=== PATIENT | female | born 1965 | race Caucasian/White ===

== ENCOUNTER → 2020-07-31 15:38 | Outpatient (CLI) | payer OTHER, SELFPAY ==
--- NOTE | ~2020-07-31 | CT_ITS ---
EXAMINATION:CT diagnostic chest wo con DATE: 07/31/2020 15:54 INDICATION: Solitary pulmonary nodule. TECHNIQUE: Computed tomography (CT) of the chest was performed without intravenous contrast. Automate d exposure control and iterative reconstruction technique were employed. The dose-length product (DLP ) was 352.98 mGy-cm. COMPARISON: Chest CT 12/30/2018 FINDINGS: There are bilateral posterior medial diaphragmatic hernias containing fat. A calcified righ t lung nodule and calcified right hilar lymph nodes are consistent with old granulomatous disease. Th ere is a 4 mm nodules at minor fissure without change. No pleural effusion. There is a 9 mm nodule in right thyroid lobe, likely not clinically significant. There is chronic mild mediastinal lymphadenop athy, likely reactive. The heart size is normal. No pericardial effusion. There is mild thoracic spon dylosis. IMPRESSION: 1. Chronic small pulmonary nodule, likely benign. Reviewed, dictated and finalized at location A.
== END ==
PROVIDERS: PCP Emergency Medicine; Visit Provider Emergency Medicine
DX: R91.1 Solitary pulmonary nodule (principal); M47.814 Spondylosis without myelopathy or radiculopathy, thoracic region
CPT/HCPCS: 71250

== ENCOUNTER → 2020-08-10 15:40 | Outpatient (CLI) | payer OTHER, SELFPAY ==
--- NOTE | ~2020-08-10 | US_ITS ---
EXAMINATION: US thyroid EXAM DATE: 08/10/2020 16:04 INDICATION: E04.1 - Nontoxic single thyroid nodule. TECHNIQUE: Multiple grayscale and Doppler images of the thyroid were obtained (by a technologist who performed the scan) and subsequently reviewed. Individual nodules and recommendations may be reporte d in accordance with TI-RADS system as designated by the 2017 ACR White Paper TI-RADS committee. Comp pillo is made to prior examination from 07/02/2015. FINDINGS: Moderately diffusely heterogeneous thyroid parenchyma, with the right there are lobe measuring 5.1 x 1.4 x 1.7 cm and the left lobe measuring 4.5 x 1.0 x 1.4 cm. Again there are scattered nodules, largest region measured in the right thyroid lobe measuring 1.0 x 0.6 x 0.9 cm, suspected most likely heterogeneous region of patient's thyroid-this region was not spe cifically measured on prior study. The next largest definite nodule has peripheral calcification, is smaller at 8 mm diameter, also category TR 4, unchanged compared to 2017 consistent with benign histo logy. Other scattered subcentimeter nodules. IMPRESSION: Heterogeneous thyroid with small nodules probably benign. Consider clinical follow-up and if additional palpable abnormality develops a repeat ultrasound. Reviewed, dictated and finalized at location A. IMPRESSION: Heterogeneous thyroid with small nodules probably benign. Consider clinical follow-up and if additional palpable abnormality develops a repeat ult rasound.
== END ==
PROVIDERS: PCP Emergency Medicine; Visit Provider Emergency Medicine
DX: E04.1 Nontoxic single thyroid nodule (principal)
CPT/HCPCS: 76536

== ENCOUNTER 2020-10-29 15:19 | Emergency (ER) | payer OTHER, SELFPAY ==
[2020-10-29 15:32] VITALS: BP 140/80; PULSE 94; RESP 18; TEMP 37.1; O2SAT 98
--- NOTE | 2020-10-29 16:21 | ED.EYEPROB ---
HPI - Eye Problem General Chief complaint: Eye Problems Stated complaint: swelling/itchy/burning to lt eye Source: patient Mode of arrival: ambulatory Limitations: no limitations History of Present Illness HPI Narrative: Patient is a 55-year-old female who presents with rash to left forehead and eyebrow x2 days. She reports itching and burning. She denies visual changes. She reports mild swelling to upper eyelid. She denies all other complaints at this time. Patient has no significant medical history. MD chief complaint: other Related Data Home Medications Medication Instructions Recorded Confirmed cetirizine 10 mg tablet 10 mg PO DAILY 07/19/19 07/19/20 fluticasone propionate 50 See Rx Instructions .ROUTE .COMPLEX 07/19/19 07/19/20 mcg/actuation nasal spray,suspension zinc acetate 25 mg (zinc) capsule 25 mg PO DAILY 09/07/20 Allergies Allergy/AdvReac Type Severity Reaction Status Date / Time hydrocodone Allergy Mild HIVES Verified 06/13/17 07:04 meperidine Allergy Mild NAUSEA AND Verified 06/13/17 07:04 VOMITING morphine Allergy Mild HIVES Verified 06/13/17 07:04 PROPOXYPHENE NAPSYLATE AdvReac Mild N&V Uncoded 06/13/17 07:04 Review of Systems Review of Systems: CONSTITUTIONAL: Denies fever, chills, or sweats. EYES: Denies visual changes, redness, or discharge. ENT: Denies rhinorrhea, congestion, sore throat, or otalgia. CARDIOVASCULAR: Denies chest pain, palpitations, or edema. RESPIRATORY: Denies cough or dyspnea. GASTROINTESTINAL: Denies abdominal pain, nausea, vomiting, or diarrhea. GENITOURINARY: Denies dysuria or hematuria. SKIN: Rash to left forehead and left eyebrow MUSCULOSKELETAL: Denies back pain, joint pain, or myalgia. NEUROLOGIC: Denies headache, numbness, dizziness, or weakness. PSYCHIATRIC: Denies anxiety or depression. [facility] Past Medical History Medical History Asthma H/O diverticulitis of colon Other screening mammogram Family History Family History Mother Family history of thyroid disease Hypertension Family history of malignant neoplasm of stomach Asthma Father Cerebrovascular accident Diabetes mellitus Hypertension Family history of diabetes mellitus in first degree relative Asthma Sibling Family history of thyroid disease Hypertension Asthma Unknown Asthma Other Alcoholism Cancer Depression Family history of allergic disorder Family history of malignant neoplasm Heart disease Thyroid disease Social History Social History Social History: Patient does not drink caffeine, Smoking status: Former smoker Smoking end date: 02/10/90 Alcohol intake: current Comments At the time of signature, I have reviewed and agree with nursing past medical, surgical, social, and family history unless otherwise noted. Please see nursing chart for further information. There is no relevant family history pertinent to the presenting complaint. Exam Narrative: GENERAL: Well-appearing, well-nourished, and in no acute distress. HEAD: Normocephalic, atraumatic. EYES: EOMI. No redness or drainage. Conjunctiva are normal. ENT: Mucous membranes pink and moist. CHEST: No respiratory distress. Clear to auscultation. HEART: Regular rate and rhythm. No murmur appreciated. Normal peripheral pulses. EXTREMITIES: Normal range of motion. SKIN: Vescicular rash to left forehead and eyebrow, mild periorbital edema, no discharge noted. NEURO: No focal deficits. Alert and oriented x3. Gait steady. PSYCH: Normal affect. No signs of depression or anxiety. Course Vital Signs Vital signs: Vital Signs Temperature 37.1 C 10/29/20 15:32 Pulse Rate 94 10/29/20 15:32 Respiratory Rate 18 10/29/20 15:32 Blood Pressure 140/80 10/29/20 15:32 Pulse Oximetry 98 10/29/20 15:32
== END 2020-10-29 16:42 | disposition home or self-care (01) ==
PROVIDERS: Emergency Provider Nurse Practitioner; PCP Emergency Medicine
DX: B02.9 Zoster without complications (principal); J45.909 Unspecified asthma, uncomplicated; Z87.891 Personal history of nicotine dependence
CPT/HCPCS: 99213; G0463

== ENCOUNTER → 2021-01-31 15:01 | Outpatient (CLI) | payer OTHER, SELFPAY ==
--- NOTE | ~2021-01-31 | MM_ITS ---
EXAMINATION: MM screening [facility] BI w nevaeh HISTORY: Screening mammogram TECHNIQUE: Craniocaudal and mediolateral oblique 3-D tomosynthesis images were obtained and synthetic 2-D images were generated. CAD analysis was submitted and interpreted. COMPARISON: 12/19/2008, 11/03/2007 BREAST PARENCHYMAL COMPOSITION: The breasts are almost entirely fatty. FINDINGS: Subtle architectural distortion in the upper outer quadrant of the left breast is seen at t he site of prior excisional biopsy. There is no evidence of suspicious mass, calcification, or dylan ectural distortion to suggest malignancy in either breast. There has been no suspicious interval reyes ge. IMPRESSION: 1. No mammographic evidence of malignancy. 2. Recommend routine screening mammography in one year. BI-RADS Category 2: Benign finding(s). Reviewed, dictated and finalized at location A. 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
== END ==
PROVIDERS: PCP Emergency Medicine; Visit Provider Obstetrics & Gynecology
DX: Z12.31 Encounter for screening mammogram for malignant neoplasm of breast (principal)
CPT/HCPCS: 77063; 77067

== ENCOUNTER 2021-05-19 15:47 | Emergency (ER) | payer OTHER, SELFPAY ==
[2021-05-19 16:03] VITALS: BP 123/77; PULSE 76; RESP 18; TEMP 36.6; O2SAT 97
--- NOTE | 2021-05-19 16:16 | ED.EAR ---
HPI - Ear Problem General Chief complaint: Ear Stated complaint: Lt Ear Pain Time Seen by Provider: 05/19/21 16:10 Source: patient Mode of arrival: ambulatory Limitations: no limitations History of Present Illness HPI Narrative: Naila Yadav is a 56 yo female with a PMH of hyperglycemia(resolved), hypertension(resolved), sinus congestion, hypothyroid, [facility] of left ear pain. she states her jaw also hurts on the L and ears bilaterally have been feeling full.Reports 5/10 pain on L Related Data Home Medications Medication Instructions Recorded Confirmed fluticasone propionate 50 See Rx Instructions .ROUTE .COMPLEX 07/19/19 05/19/21 mcg/actuation nasal spray,suspension montelukast [Singulair] 10 mg PO HS 05/19/21 05/19/21 Allergies Allergy/AdvReac Type Severity Reaction Status Date / Time hydrocodone Allergy Mild HIVES Verified 05/19/21 16:07 meperidine Allergy Mild NAUSEA AND Verified 05/19/21 16:07 VOMITING morphine Allergy Mild HIVES Verified 05/19/21 16:07 PROPOXYPHENE NAPSYLATE AdvReac Mild N&V Uncoded 05/19/21 16:07 Review of Systems Review of Systems: CONSTITUTIONAL: Denies fever, chills, sweats. EYES: Denies visual changes, redness, discharge. ENT: Denies rhinorrhea, congestion, sore throat, left otalgia. CARDIOVASCULAR: Denies chest pain, palpitations, edema. RESPIRATORY: Denies dyspnea, wheezing, cough GASTROINTESTINAL: Denies abdominal pain, nausea, vomiting, diarrhea. GENITOURINARY: Denies dysuria, hematuria, abnormal discharge SKIN: Denies rash or itching. NEUROLOGIC: Denies numbness, or focal weakness. PSYCHIATRIC: Denies anxiety or depression. [facility] Past Medical History Medical History Anxiety Asthma H/O diverticulitis of colon H/O diverticulitis of colon Incisional hernia, without obstruction or gangrene Multinodular goiter Other screening mammogram Thyroid Nodule Uncomplicated asthma Surgical History Surgical History History of hernia repair Family History Family History Mother Family history of thyroid disease Hypertension Family history of malignant neoplasm of stomach Asthma Father Cerebrovascular accident Diabetes mellitus Hypertension Family history of diabetes mellitus in first degree relative Asthma Sibling Family history of thyroid disease Hypertension Asthma Unknown Asthma Other Alcoholism Cancer Depression Family history of allergic disorder Family history of malignant neoplasm Heart disease Thyroid disease Social History Social History Social History: Patient does not drink caffeine, Smoking status: Former smoker Smoking end date: 02/10/90 Alcohol intake: current Comments At time of signature, I agree with nursing past medical, surgical, social and family history. There is no relevant family history pertinent to the presenting complaint. Exam Narrative: GENERAL: This is a well-nourished, well-developed patient, in mild distress. HEAD: normocephalic, atraumatic. EYES: PERRL. Sclera clear/white. Vision is grossly intact. EARS: External ears normal, auditory canals clear on left and erythematous on right and without drainage, bilateral TMs have fluid behind them and are bulging. Hearing grossly intact. NOSE: External nose normal without nasal discharge, nares without redness, no rhinorrhea. THROAT: Mucous membranes moist, posterior pharynx pink NECK: Neck supple, [id number] jaw neck tenderness CARDIOVASCULAR: Regular rate and rhythm without murmurs, gallops, or rubs. RESPIRATORY: Clear to auscultation. Breath sounds equal bilaterally. No wheezes, rales, or rhonchi. GASTROINTESTINAL: Abdomen soft, SKIN: warm, intact with no suspicious lesions or rash, good
== END 2021-05-19 16:28 | disposition home or self-care (01) ==
PROVIDERS: Emergency Provider Nurse Practitioner; PCP Emergency Medicine
DX: H65.03 Acute serous otitis media, bilateral (principal); Z87.891 Personal history of nicotine dependence; J45.909 Unspecified asthma, uncomplicated
CPT/HCPCS: 99213; G0463

== ENCOUNTER → 2021-08-09 15:48 | Outpatient (CLI) | payer OTHER, SELFPAY ==
--- NOTE | ~2021-08-09 | CT_ITS ---
EXAMINATION: CT diagnostic chest wo con DATE: 08/09/2021 16:24 INDICATION: Pulmonary nodules TECHNIQUE: Computed tomography (CT) of the chest was performed without intravenous contrast. Automate d exposure control and iterative reconstruction technique were employed. Exam dose: 374.60 mGy-cm to caroline exam DLP. COMPARISON: 07/31/2020 CT chest FINDINGS: There is persistent mediastinal lymph node prominence, also present on 07/31/2020, slightly increased in prominence; for example, a prevascular lymph node currently measures approximately 14.3 x 15.8 mm compared to 11 x 13 mm on 07/31/2020. Stable 4 mm nodular density at the minor fissure, unchanged since 07/31/2020. Calcified right hilar and subcarinal nodes and calcified bilateral lower lobe pulmonary granulomas an d calcified hepatic granulomas, consistent with old granulomatous disease. No thoracic aortic aneurys m. Normal heart size. No pericardial or pleural effusion. Normal morphology of the adrenal glands. Bilateral posteromedial fat-containing diaphragmatic hernias, stable since 07/31/2020. Included skeletal structures are unremarkable. IMPRESSION: Slightly increased prominence of nonspecific mediastinal lymph node prominence since 07/12 Stable 4 mm nodule at the minor fissure Old pulmonary granulomatous disease Reviewed, dictated and finalized at Location A. Reviewed, dictated and finalized at location B. IMPRESSION: Slightly increased prominence of nonspecific mediastinal lymph nod e prominence since 07/31/2020 Stable 4 mm nodule at the minor fissure Old pulmonary granulomatous disease
== END ==
PROVIDERS: PCP Emergency Medicine; Visit Provider Emergency Medicine
DX: R91.8 Other nonspecific abnormal finding of lung field (principal)
CPT/HCPCS: 71250

== ENCOUNTER → 2021-09-18 14:44 | Outpatient (CLI) | payer OTHER, SELFPAY ==
--- NOTE | ~2021-09-18 | US_ITS ---
US thyroid INDICATION: Nontoxic thyroid nodule TECHNIQUE: Real-time sonographic images of the thyroid gland were obtained. COMPARISON: Ultrasound dated 08/11/2019 FINDINGS: The right thyroid lobe measures 5.3 x 1.5 x 1.6 cm. The left thyroid lobe measures 4.5 x 1 .1 x 1.8 cm. There are multiple bilateral thyroid nodules of varying size and echogenicity. Largest d ominant right thyroid nodule is partially calcified measuring 9 mm. This mass is hypoechoic, circumsc ribed, solid with posterior shadowing, wider than tall, smoothly marginated and macro calcifications, TR 4. This is not significantly changed from prior examination allowing for technique. In the left l obe there is a small hypoechoic solid mass measuring 9 x 6 x 9 mm which is wider than tall, ill-defin ed margins and no echogenic foci, TR 4. IMPRESSION: 1. Bilateral thyroid masses of varying size and echogenicity, with bilateral dominant masses with th yroid classification TR 4. These do not meet sonographic criteria for biopsy. Reviewed, dictated and finalized at location A. IMPRESSION: 1. Bilateral thyroid masses of varying size and echogenicity, with bilateral d ominant masses with thyroid classification TR 4. These do not meet sonographic criteria for biopsy.
== END ==
PROVIDERS: PCP Emergency Medicine; Visit Provider Internal Medicine Endocrinology, Diabetes & Metabolism
DX: E04.1 Nontoxic single thyroid nodule (principal)
CPT/HCPCS: 76536

== ENCOUNTER 2021-10-25 08:58 | Outpatient (CLI) | payer OTHER, SELFPAY ==
--- NOTE | 2021-10-25 12:32 | WPDPFTINT ---
PFT Procedure Performed PFT Procedure Performed Spirometry with Pre/Post Bronchodilator Plethysmography (Lung Vol) Diffusing Cap (DLCO) Flow Vol Loop PFT Interpretation Lung volumes were measured with the body plethysmography method. Lung volumes are unremarkable. Spirometry showed normal expiratory flow rates and a normal FEV1 to FVC ratio of 84%. Following administration of a bronchodilator there was no significant increase in expiratory flow rates. Lung diffusion capacity is within the normal range at 79% predicted. The flow volume loop is unremarkable. Impression: Spirometry, lung volumes, and lung diffusion capacity all within the normal range.
== END 2021-10-25 08:59 | disposition home or self-care (01) ==
LOC: ANHPFT 09:00
PROVIDERS: PCP Emergency Medicine; Visit Provider Internal Medicine Pulmonary Disease
DX: J45.909 Unspecified asthma, uncomplicated (principal)
CPT/HCPCS: 94060; 94726; 94729

== ENCOUNTER 2022-02-06 08:11 | Outpatient (CLI) | payer OTHER, SELFPAY ==
--- NOTE | 2022-02-28 20:50 | WPDSLEEPSTUD ---
Sleep Study Date of Study: 02/06/22 Ordering Provider: Beto Rondon MD Interpreting Physician: Tamela Wood MD Sleep Study Type: CPAP Titration Height: 1.47 m Weight: 71.668 kg Body Mass Index: 33.0 Neck Circumference (inches): 16 [place]: 6 Reason for Sleep Study * 08/15/2021 - Home sleep test using [place], apnea-hypopnea index 15, minimum saturation 78%, 1 minute spent below 85%. She was prescribed APAP without improvement. She presents for a titration for optimal pressure. Sleep History Naila Yadav is a 56-year-old woman who was diagnosed with obstructive sleep apnea using a home sleep test on 08/15/2021, AHI was 15, desaturation to 78% with a moderate snoring. An order was written for auto PAP. She started using auto PAP in October. She has had difficulties getting used to it and is not been able to use it more than a few hours per night. She continues to have symptoms consistent with uncontrolled sleep apnea. The patient has shortness of breath and palpitations. She occasionally awakens from sleep feeling short of breath. She rarely awakens at night with heartburn, belching or coughing. She occasionally snores. She rarely snores loudly enough that others complain. She rarely has trouble sleeping with a cold. She rarely wakes up gasping for breath at night. She occasionally has problems at night observed by others. She rarely sweats excessively night. She frequently notices her heart pounding or beating irregularly night. She frequently falls asleep during the day. She occasionally falls asleep involuntarily. She does not fall asleep while driving. She rarely has loss of muscle tone with strong emotion. 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 She does not feel paralyzed on waking or falling asleep. She rarely has vivid dreamlike scenes on waking or falling asleep. She does not feel afraid to go to sleep. She does not have nightmares. She occasionally remembers her dreams. She frequently has racing thoughts. She rarely feels sad or depressed. She occasionally has anxiety. She occasionally has muscular tension. She occasionally notices parts of her body jerking. She does not kick at night. She frequently has crawling and aching feelings in her legs. She frequently has leg pain at night. She does not have morning jaw pain. She does not grind her teeth during sleep. She occasionally is bothered by pain during the day, occasionally awakened by pain at night and occasionally wakes up feeling stiff in the morning. She occasionally wakes up with sore achy muscles and pain in the neck and spine. She has headaches, fatigue and memory problems. Normal bedtime is 10:00 p.m., sometimes falling asleep quickly and at other times this may take a while. She may wake up 2-3 times during the night to go to the bathroom. It may take 30 minutes for her to return to sleep. She generally wakes between 4 and 5:00 a.m.. Her schedule is similar on the weekends, bedtime is 10:00 p.m. and she wakes between 6 and 7:00 a.m.. In general she does not take naps in the afternoon or evening. A short nap lasting 10 or 15 minutes is not refreshing. She is usually drowsy after waking for 3 hours or longer. She feels better in the morning compared to other times of day. Habits: Quit tobacco 30 years ago. No caffeine. Minimal alcohol. Has a glass of wine 1 or 2 days a month. No recreational substances. [facility] Past Medical History Medical History Anxiety Asthma H/O diverticulitis of colon H/O diverticulitis of colon Incisional hernia, without obstruction or gangrene Multinodular goiter Other screening mammogram Thyroid Nodule Uncomplicated asthma Surgical History Surgical History History of hernia repair Family History Family History (Reviewed
[2022-02-28 22:09] VITALS: BMI 33.0
== END 2022-02-07 06:42 | disposition home or self-care (01) ==
LOC: ANHCSM 08:15
PROVIDERS: PCP Emergency Medicine; Visit Provider Internal Medicine Pulmonary Disease
DX: G47.33 Obstructive sleep apnea (adult) (pediatric) (principal)
CPT/HCPCS: 95811

== ENCOUNTER → 2022-02-06 15:55 | Outpatient (CLI) | payer OTHER, SELFPAY ==
--- NOTE | ~2022-02-06 | MM_ITS ---
EXAMINATION: MM screening [place] BI w nevaeh HISTORY: Screening mammogram TECHNIQUE: Craniocaudal and mediolateral oblique 3-D tomosynthesis images were obtained and synthetic 2-D images were generated. CAD analysis was submitted and interpreted. COMPARISON: 01/31/2021, 12/19/2008 bilateral screening mammogram examinations BREAST PARENCHYMAL COMPOSITION: There are scattered areas of fibroglandular density. FINDINGS: There is no evidence of suspicious mass, calcification, or architectural distortion to sugg est malignancy in either breast. There has been no suspicious interval change. IMPRESSION: 1. No mammographic evidence of malignancy. 2. Recommend routine screening mammography in one year. BI-RADS Category 1: Negative Reviewed, dictated and finalized at location A. 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
== END ==
PROVIDERS: PCP Obstetrics & Gynecology; Visit Provider Obstetrics & Gynecology
DX: Z12.31 Encounter for screening mammogram for malignant neoplasm of breast (principal)
CPT/HCPCS: 77063; 77067

== ENCOUNTER → 2022-07-30 16:52 | Outpatient (CLI) | payer OTHER, SELFPAY ==
--- NOTE | ~2022-07-30 | XR_ITS ---
EXAM: XR hip LT 2V w AP pelvis DATE: 07/30/2022 17:28 HISTORY: M25.552 - Pain in left hip . COMPARISON: 06/24/2016. FINDINGS: Surgical clips and a staple line over the upper pelvis. Decreased mineralization. No fractu re or dislocation. No lytic or blastic lesion. Lumbar degenerative disc disease and a transitional luis mbosacral segment. Mild bilateral hip joint space narrowing. Mild scattered hip and pelvic enthesopat hy. No erosion or periosteal change. Pelvic phleboliths. IMPRESSION: Mild bilateral hip osteoarthritis. Reviewed, dictated and finalized at location K.
--- NOTE | ~2022-07-30 | XR_ITS ---
EXAM: [id number] DATE: 07/30/2022 17:29 HISTORY: M25.562 - Pain in left knee . COMPARISON: None available. FINDINGS: Decreased mineralization. No fracture or dislocation. No lytic or blastic lesion. Mild med ial joint space narrowing and very mild tricompartment osteophytosis. No erosion or periosteal change . Soft tissues within normal limits. IMPRESSION: Osteopenia. Mild tricompartmental left knee osteoarthritis. Reviewed, dictated and finalized at location K.
== END ==
PROVIDERS: PCP Emergency Medicine; Visit Provider Emergency Medicine
DX: M85.862 Other specified disorders of bone density and structure, left lower leg (principal); M17.12 Unilateral primary osteoarthritis, left knee; M16.0 Bilateral primary osteoarthritis of hip
CPT/HCPCS: 73502; 73560

== ENCOUNTER → 2022-11-19 10:22 | Outpatient (CLI) | payer OTHER, SELFPAY ==
--- NOTE | ~2022-11-19 | US_ITS ---
Thyroid ultrasound. Clinical History: Thyroid nodule COMPARISON: 09/18/2021, 08/10/2020 Findings: Real-time sonography of the thyroid gland was performed. The right lobe measures 5.1 x 1.4 x 1.6 cm. The left lobe measures 4.6 x 1.1 x 1.6 cm. The isthmus is 2 mm in AP diameter. There is a probable 1.4 cm somewhat ill-defined mainly hypoechoic solid nodule at the left lower pole . There is an additional 0.8 cm hypoechoic solid nodule at the left lower pole. Several additional ti ny subcentimeter left thyroid lobe nodules are present. There are multiple subcentimeter right thyroi d lobe nodules, largest measuring 8 mm with peripheral eggshell calcification. Impression: Multiple bilateral thyroid nodules, similar to prior exam.. Reviewed, dictated and finalized at [facility]. Impression: Multiple bilateral thyroid nodules, similar to prior exam..
== END ==
PROVIDERS: PCP Internal Medicine Endocrinology, Diabetes & Metabolism; Visit Provider Internal Medicine Endocrinology, Diabetes & Metabolism
DX: E04.2 Nontoxic multinodular goiter (principal)
CPT/HCPCS: 76536

== ENCOUNTER 2022-12-05 01:55 | Day surgery (SDC) | payer OTHER, SELFPAY ==
[2022-11-22 14:24] VITALS: BMI 30.7
[2022-12-05 09:21] VITALS: BP 137/76; PULSE 58; RESP 18; TEMP 36.3; O2SAT 98; BMI 30.2
[2022-12-05] MEDS: LACTATED RINGERS 1,000 ML 150 ML IV CONT (09:49)
--- NOTE | 2022-12-05 10:03 | PM.HPGS ---
History of Present Illness History of Present Illness Consent: Risks, benefits, and alternatives have been discussed and questions answered. Patient agrees to proceed with procedure. Chief complaint: HX colon polyps Narrative: Naila Yadav is a 57 year old female Presents for screening colonoscopy. Patient found to have tubular adenoma in the colon in 2014. Patient reports having had recurrent diverticulitis and subsequent resection of the sigmoid colon. Apparently had an unremarkable colonoscopy at [facility] in 2018. Patient presents today for follow-up surveillance colonoscopy. Patient reports her current bowel habits are normal. Family history noncontributory. Review of Systems Review of Systems: Review of systems noncontributory. [facility] Past Medical History Medical History (Updated 12/05/22 @ 10:04 by Delonte Suazo MD) Anxiety Asthma delivery delivered H/O diverticulitis of colon Hyperglycemia Incisional hernia, without obstruction or gangrene Multinodular goiter Osteoarthritis Thyroid Nodule Uncomplicated asthma Vitamin D deficiency Surgical History Surgical History (Updated 11/22/22 @ 15:30 by Nina Cai PA-C) History of breast surgery breast lump left 2006, right 2013 History of 1987, 1993, 1996 History of foot surgery Rt foot bunionectomy 2010, rt great toe fusion and 2nd/3rd tendon removal 12/03/2012, 11/25/2019 tendon removal rt toes History of hernia repair 08/01/16 History of resection of large bowel 11/25 due to diverticulosis Previous back surgery 05/15 fusion with sarah 1990, sarah removal 1992 Family History Family History Mother Family history of thyroid disease Hypertension Family history of malignant neoplasm of stomach Asthma Father Cerebrovascular accident Diabetes mellitus Hypertension Family history of diabetes mellitus in first degree relative Asthma Sibling Family history of thyroid disease Hypertension Asthma Unknown Asthma Other Alcoholism Cancer Depression Family history of allergic disorder Family history of malignant neoplasm Heart disease Thyroid disease Social History Social History Social History: Patient does not drink caffeine, Smoking packs per day: 0.25 Smoking cigarettes per day: 5.0 Years smoked: 3 Smoking pack-years: 0.75 Smoking status: Never smoker Smoking end date: 02/10/90 Alcohol intake: never Alcohol use details: occasionally Substance use: never Substance use type: does not use Lack of Transportation: No Lack of Food: Never True Current Housing: I Have Housing Concerned About Future Housing: No Difficulty Paying Gas/Electric Bills: No Difficulty Paying for Meds: No Currently Unemployed: Decline to Answer Education: Associate Degree Difficulty w/ Childcare or Family Care: No Living arrangements: with family Occupation/Education: retired Gender identity (if verbalized by the patient): Female Spiritual care concerns: No Meds Home Medications and Allergies Home Medications Medication Instructions Recorded Confirmed Type fluticasone propionate 50 See Rx Instructions .Route .COMPLEX 07/19/19 11/22/22 History mcg/actuation nasal spray,suspension (Flonase Allergy Relief) albuterol sulfate 90 mcg/actuation See Rx Instructions .Route 04/23/22 11/22/22 Rx aerosol inhaler .COMPLEX #8.5 grams Vitamin D3 1 tab-cap BYMOUTH DAILY 09/23/22 11/06/22 History ascorbate calcium (vitamin C) 500 500 mg PO DAILY 09/23/22 11/22/22 History mg tablet mecobalamin (vitamin B12) 5,000 5,000 mcg PO EVERY OTHER DAY 09/23/22 11/22/22 History mcg chewable tablet montelukast 10 mg tablet 10 mg PO DAILY #90 tabs 09/23/22 11/22/22 Rx omega-3 fatty acids-fish oil 300 1 cap PO DAILY 09/23/22 11/22/22 History
--- NOTE | 2022-12-05 10:42 | WPDANESEPPF ---
Anes - Initial Pre Proc Eval Procedure: Operation Date: 12/05/22 10:30 Proposed Procedures p Colonoscopy - Delonte Suazo MD Date/Time: 12/05/22 10:42 Surgeon: Delonte Suazo MD Pre Op Diagnosis: HX colon polyps Patient Data Age: 57 Gender: F Height: 1.5 m Weight: 68 kg Last Vital Signs Temp 97.3 F L 12/05/22 09:21 Pulse 58 L 12/05/22 09:21 Resp 18 12/05/22 09:21 BP 137/76 12/05/22 09:21 Pulse Ox 98 12/05/22 09:21 O2 Del Method Room Air 12/05/22 09:21 Allergies Allergy/AdvReac Type Severity Reaction Status Date / Time hydrocodone Allergy Mild HIVES Verified 11/22/22 14:21 morphine Allergy Mild HIVES Verified 11/22/22 14:21 acetaminophen AdvReac Intermediate Vomiting Verified 11/22/22 14:21 [From Darvocet-N] propoxyphene AdvReac Intermediate Nausea and Verified 12/04/22 14:47 [From Darvocet-N] Vomiting meperidine AdvReac Mild NAUSEA AND Verified 12/04/22 14:48 VOMITING Home Medications Medication Instructions Recorded Confirmed Type fluticasone propionate 50 See Rx Instructions .Route .COMPLEX 07/19/19 11/22/22 History mcg/actuation nasal spray,suspension (Flonase Allergy Relief) albuterol sulfate 90 mcg/actuation See Rx Instructions .Route 04/23/22 11/22/22 Rx aerosol inhaler .COMPLEX #8.5 grams Vitamin D3 1 tab-cap BYMOUTH DAILY 09/23/22 11/06/22 History ascorbate calcium (vitamin C) 500 500 mg PO DAILY 09/23/22 11/22/22 History mg tablet mecobalamin (vitamin B12) 5,000 5,000 mcg PO EVERY OTHER DAY 09/23/22 11/22/22 History mcg chewable tablet montelukast 10 mg tablet 10 mg PO DAILY #90 tabs 09/23/22 11/22/22 Rx omega-3 fatty acids-fish oil 300 1 cap PO DAILY 09/23/22 11/22/22 History mg-500 mg capsule (Fish Oil) pyridoxine (vitamin B6) 100 mg 100 mg PO DAILY 09/23/22 11/22/22 History tablet vitamin E (dl, acetate) 180 mg 180 mg PO DAILY 09/23/22 11/22/22 History (400 unit) capsule zinc sulfate 25 mg zinc (110 mg) 25 mg PO DAILY 09/23/22 11/22/22 History tablet (Orazinc) rosuvastatin 5 mg tablet 5 mg PO DAILY 3 months #90 tabs 11/06/22 11/22/22 Rx Patient hx anesthesia problems: none Family hx anesthesia problems: none Results Review: All pre-operative results and documents have been reviewed as part of the pre-operative evaluation. [facility] Past Medical History Medical History (Updated 12/05/22 @ 10:04 by Delonte Suazo MD) Anxiety Asthma delivery delivered H/O diverticulitis of colon Hyperglycemia Incisional hernia, without obstruction or gangrene Multinodular goiter Osteoarthritis Thyroid Nodule Uncomplicated asthma Vitamin D deficiency Surgical History Surgical History (Updated 11/22/22 @ 15:30 by Nina Cai PA-C) History of breast surgery breast lump left 2006, right 2013 History of 1987, 1993, 1996 History of foot surgery Rt foot bunionectomy 2010, rt great toe fusion and 2nd/3rd tendon removal 12/03/2012, 11/25/2019 tendon removal rt toes History of hernia repair 08/01/16 History of resection of large bowel 11/25 due to diverticulosis Previous back surgery /5th fusion with sarah 1990, sarah removal 1992 Family History Family History Mother Family history of thyroid disease Hypertension Family history of malignant neoplasm of stomach Asthma Father Cerebrovascular accident Diabetes mellitus Hypertension Family history of diabetes mellitus in first degree relative Asthma Sibling Family history of thyroid disease Hypertension Asthma Unknown Asthma Other Alcoholism Cancer Depression Family history of allergic disorder Family history of malignant neoplasm Heart disease Thyroid disease Social History Social History Social History: Patient does not drink caffeine, Smoking packs per day: 0.25 Smoking cigarette
[2022-12-05 10:48] VITALS: BP 101/56; PULSE 62; RESP 22; O2SAT 100
[2022-12-05 10:58] VITALS: BP 109/69; PULSE 53; RESP 19; O2SAT 100
[2022-12-05 11:08] VITALS: BP 114/71; PULSE 48; RESP 17; O2SAT 100
== END 2022-12-05 11:20 | disposition home or self-care (01) ==
PROVIDERS: PCP Physician Assistant Medical; Visit Provider Internal Medicine Gastroenterology
PROC: 0DJD8ZZ Inspection of Lower Intestinal Tract, Via Natural or Artificial Opening Endoscopic (ICD-10-PCS; CPT 45378; principal; 2022-12-05 10:30)
DX: Z12.11 Encounter for screening for malignant neoplasm of colon (principal); K64.8 Other hemorrhoids; K57.30 Diverticulosis of large intestine without perforation or abscess without bleeding; Z86.010 Personal history of colon polyps; Z87.19 Personal history of other diseases of the digestive system; Z90.49 Acquired absence of other specified parts of digestive tract; J45.909 Unspecified asthma, uncomplicated; E55.9 Vitamin D deficiency, unspecified; F41.9 Anxiety disorder, unspecified; Z87.891 Personal history of nicotine dependence; Z79.51 Long term (current) use of inhaled steroids
CPT/HCPCS: 45378; J7120

== ENCOUNTER → 2023-02-07 09:54 | Outpatient (CLI) | payer OTHER, SELFPAY ==
--- NOTE | ~2023-02-07 | MM_ITS ---
EXAMINATION: MM screening [facility] BI w nevaeh HISTORY: Screening mammogram TECHNIQUE: Craniocaudal and mediolateral oblique 3-D tomosynthesis images were obtained and synthetic 2-D images were generated. CAD analysis was submitted and interpreted. COMPARISON: 01/29/2022, 01/31/2021 bilateral screening mammogram examinations BREAST PARENCHYMAL COMPOSITION: There are scattered areas of fibroglandular density. FINDINGS: There is no evidence of suspicious mass, calcification, or architectural distortion to sugg est malignancy in either breast. There has been no suspicious interval change. IMPRESSION: 1. No mammographic evidence of malignancy. 2. Recommend routine screening mammography in one year. BI-RADS Category 1: Negative Reviewed, dictated and finalized at location A. 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
== END ==
PROVIDERS: PCP Obstetrics & Gynecology; Visit Provider Obstetrics & Gynecology
DX: Z12.31 Encounter for screening mammogram for malignant neoplasm of breast (principal)
CPT/HCPCS: 77063; 77067

== ENCOUNTER 2023-12-01 13:43 | Outpatient (CLI) | payer OTHER, SELFPAY ==
--- NOTE | ~2023-12-01 | US_ITS ---
EXAMINATION: US thyroid DATE: 12/01/2023 14:00 INDICATION: Nontoxic single thyroid nodule. TECHNIQUE: Multiple ultrasound images of the thyroid were obtained. COMPARISON: Ultrasound 11/19/2022, 07/01/16 FINDINGS: The right thyroid lobe measures 4.9 x 1.6 x 1.7 cm. The left thyroid lobe measures 4.9 x 1.0 x 1.5 c m. The thyroid demonstrates heterogeneous hypoechogenicity and increased vascularity. In the right t hyroid lobe, there is a 10 mm solid, hypoechoic, wider than tall nodule with smooth margin without ec hogenic foci (TI-RADS TR4), stable from 07/01/16. In the right thyroid lobe, there is a 5 mm solid, hy poechoic, wider than tall nodule with smooth margin without echogenic foci (TR4), stable from 07/01/16 . In the right thyroid lobe, there is an 8 mm solid, hypoechoic, wider than tall nodule with ill-defi rigo margin and peripheral calcifications (TR4), stable from 07/01/16. In the left thyroid lobe, there is an 11 mm solid, isoechoic, wider than tall nodule with ill-defined margin without echogenic foci ( TR3). IMPRESSION: 1. Thyroid nodules, likely not clinically significant. No follow-up is needed. 2. Heterogeneous, hypervascular thyroid, likely chronic lymphocytic (Angelika) thyroiditis. Reviewed, dictated and finalized at location A.
== END 2023-12-01 13:44 | disposition home or self-care (01) ==
LOC: MICIMG 13:44
PROVIDERS: PCP Physician Assistant Medical; Visit Provider Internal Medicine Endocrinology, Diabetes & Metabolism
DX: E04.2 Nontoxic multinodular goiter (principal)
CPT/HCPCS: 76536

== ENCOUNTER 2024-01-28 10:16 | Outpatient (CLI) | payer OTHER, SELFPAY ==
--- NOTE | ~2024-01-28 | CT_ITS ---
CT Scan of the Chest without Contrast: Clinical Indication: Pulmonary nodule Technique: Contiguous sections were acquired throughout the chest without intravenous contrast. Dose reduction technique was used on this scan by utilizing automated exposure control and iterative recon struction technique. The dose-length product (DLP) was 89.77 mGy-cm. COMPARISON: 08/09/2021 Findings: There is mediastinal lymphadenopathy, stable along the right paratracheal stripe and in the prevascul ar/anterior mediastinum, with probable mild amorphous calcification in some nodes. Small densely calc ified right hilar and subcarinal nodes are present.. The mediastinal soft tissues appear normal. There is no evidence of pleural or pericardial effusion. Stable 3 mm perihilar nodule right lung (axial image 49). Images through the upper abdomen reveal no abnormalities. Impression: Stable 3 mm right perihilar pulmonary nodule. Mediastinal adenopathy, stable from prior exam. Reviewed, dictated and finalized at [facility]. 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 Mediastinal adenopathy, stable from prior exam.
== END 2024-01-28 10:17 | disposition home or self-care (01) ==
LOC: MICIMG 10:17
PROVIDERS: PCP Physician Assistant Medical; Visit Provider Physician Assistant Medical
DX: R91.1 Solitary pulmonary nodule (principal)
CPT/HCPCS: 71250

== ENCOUNTER 2024-02-10 10:19 | Outpatient (CLI) | payer OTHER, SELFPAY ==
--- NOTE | ~2024-02-10 | MM_ITS ---
EXAMINATION: MM screening [facility] BI w nevaeh HISTORY: Screening mammogram TECHNIQUE: Craniocaudal and mediolateral oblique 3-D tomosynthesis images were obtained and synthetic 2-D images were generated. CAD analysis was submitted and interpreted. COMPARISON: 01/29/2023, 02/06/2022, 01/31/2021 BREAST PARENCHYMAL COMPOSITION:Not Dense. There are scattered areas of fibroglandular density. FINDINGS: No suspicious mass, calcification, or architectural distortion are identified in either barb ast to suggest malignancy. There has been no suspicious interval change. IMPRESSION: No mammographic evidence of malignancy. Recommend routine screening mammography in one year. BI-RADS Category 1: Negative Reviewed, dictated and finalized at location . 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
== END 2024-02-10 10:20 | disposition home or self-care (01) ==
PROVIDERS: PCP Physician Assistant Medical; Visit Provider Obstetrics & Gynecology
DX: Z12.31 Encounter for screening mammogram for malignant neoplasm of breast (principal)
CPT/HCPCS: 77063; 77067

== ENCOUNTER 2024-07-22 12:50 | Outpatient (CLI) | payer OTHER, SELFPAY ==
--- NOTE | ~2024-07-22 | CT_ITS ---
CT of the Abdomen and Pelvis: Indication: Abdominal pain Technique: 2.5 mm axial scans were obtained through the abdomen and pelvis following intravenous adm inistration of 100 cc of Omnipaque 350. Dose reduction technique was used on this scan by utilizing a utomated exposure control and iterative reconstruction technique. The dose-length product (DLP) was 3 56.63 mGy-cm. Findings: Scans through the lung bases are unremarkable. The liver, spleen, pancreas, gallbladder, adrenals and kidneys are within normal limits. No evidence of aortic aneurysm. No lymphadenopathy. No bowel obstruction or bowel wall thickening. Rectosigmoid anastomosis noted. Images through the pelvis were performed. Urinary bladder unremarkable. 2 cm right ovarian cyst prese nt. No other adnexal mass seen. Impression: 2 cm right ovarian cyst. No significant findings. Reviewed, dictated and finalized at [facility]. Impression: 2 cm right ovarian cyst. No significant findings.
[2024-07-22 13:13] LABS: Estimated Glomerular Filt Rate > 60
== END 2024-07-22 12:51 | disposition home or self-care (01) ==
LOC: MICIMG 12:51
PROVIDERS: PCP Physician Assistant Medical; Visit Provider Physician Assistant Medical
DX: N83.291 Other ovarian cyst, right side (principal)
CPT/HCPCS: 74177; Q9967

== ENCOUNTER 2024-11-26 09:34 | Outpatient (CLI) | payer OTHER, SELFPAY ==
--- NOTE | ~2024-11-26 | XR_ITS ---
EXAMINATION: XR chest 2V, 11/26/2024 9:48 CDT HISTORY: Other congenital deformities of chest COMPARISON: No comparisons available. Technique: 2 views obtained. Findings: The lungs are clear, no effusion. No pneumothorax. Heart is normal size. Mediastinal and hilar contours are within normal limits. Bony thorax no acute abnormality. Impression: No acute cardiopulmonary abnormality. Reviewed, dictated and finalized at location P. Impression: No acute cardiopulmonary abnormality.
== END 2024-11-26 09:35 | disposition home or self-care (01) ==
PROVIDERS: PCP Physician Assistant Medical; Visit Provider Internal Medicine Endocrinology, Diabetes & Metabolism
DX: Q67.8 Other congenital deformities of chest (principal)
CPT/HCPCS: 71046